=== PATIENT | male | born 1945 | race Caucasian/White ===

== ENCOUNTER → 2024-07-05 08:04 | Outpatient (REF) | payer MEDICARE, OTHER, SELFPAY | LOC: RCS 08:04 | PROVIDERS: ATTENDING PHYSICIAN Internal Medicine Cardiovascular Disease; FAMILY PHYSICIAN Family Medicine | DX: I49.3 Ventricular premature depolarization (principal); E78.00 Pure hypercholesterolemia, unspecified; N28.9 Disorder of kidney and ureter, unspecified; I45.2 Bifascicular block; I45.10 Unspecified right bundle-branch block | CPT/HCPCS: 93225; 93226 ==

== ENCOUNTER → 2024-09-24 10:48 | Outpatient (REF) | payer MEDICARE, OTHER, SELFPAY | LOC: RAD 10:48 | PROVIDERS: ATTENDING PHYSICIAN Family Medicine | DX: M85.89 Other specified disorders of bone density and structure, multiple sites (principal) | CPT/HCPCS: 77080 ==

== ENCOUNTER → 2025-03-25 12:52 | Outpatient (REF) | payer MEDICARE, OTHER, SELFPAY | LOC: HWRCS 12:52 | PROVIDERS: ATTENDING PHYSICIAN Internal Medicine Cardiovascular Disease; FAMILY PHYSICIAN Family Medicine | DX: Z98.890 Other specified postprocedural states (principal); R00.1 Bradycardia, unspecified; I49.3 Ventricular premature depolarization | CPT/HCPCS: 93306 ==